=== PATIENT | female | born 1970 | race American Indian/Alaskan Native ===

== ENCOUNTER 2018-02-27 02:29 | Emergency (ER) | payer MEDICAID ==
[2018-02-27] MEDS ORDERED: DUONEB *Not for PRN Use IH ONE (02:32)
[2018-02-27] MEDS ORDERED: PROVENTIL IH ONE ×2 (02:33→03:23)
[2018-02-27] MEDS ORDERED: LASIX ONE ×2 (03:17)
[2018-02-27] MEDS ORDERED: DELTASONE PO ONE (03:22)
[2018-02-27] MEDS ORDERED: LASIX IV ONE ×2 (03:22→03:23)
--- NOTE | 2018-02-27 03:48 | XRay Report ---
FINAL REPORT EXAM: XR CHEST 1V AP HISTORY: chest pain COMPARISON: None available. FINDINGS: Frontal view(s) of the chest obtained. Heart borderline enlarged. Shallow inspiration with crowding of the bronchovascular markings. No large consolidation or effusion. No pneumothorax. Tiny calcified granuloma left midlung. IMPRESSION: Shallow inspiration with prominence of the pulmonary vasculature centrally. No overt edema. No focal consolidation or effusion.
[2018-02-27 04:38] LABS: BUN/Creatinine Ratio 13; Blood Urea Nitrogen 10 mg/dL (7-17); Calcium 8.8 mg/dL (8.4-10.2); Hemolysis Index 1
--- NOTE | 2018-02-27 06:10 | Emergency Department Report ---
ED Shortness of Breath HPI - General Chief Complaint: Adult Asthma Stated Complaint: SOB Time Seen by Provider: 02/27/18 03:21 Source: patient Mode of arrival: Ambulatory Limitations: Language Barrier - History of Present Illness Initial Comments: 24 hours of progressive onset shortness of breath and substernal chest pain. Patient says that feels like her COPD. It is exertional. Nonpositional. Feels like her legs are more swollen than usual. She gave herself 4 nebulizer treatments today with no improvement. She gave herself an extra dose of her Lasix, which did not help. Former smoker. Afebrile. No cough. She came to ER for evaluation. Patient has never been intubated before, but she has been admitted for her breathing. On 2L NC at baseline. - Related Data Previous Rx's Medication Instructions Recorded Last Taken Type Prednisone 50 mg PO DAILY #4 tablet 02/27/18 Unknown Rx Allergies Allergy/AdvReac Type Severity Reaction Status Date / Time promethazine [From Phenergan] Allergy Hives Verified 02/27/18 02:31 ED Review of Systems ROS: Stated complaint: SOB Other details as noted in HPI Comment: All other systems reviewed and negative Respiratory: shortness of breath Cardiovascular: chest pain ED Past Medical Hx - Past Medical History Previous Medical History?: Yes Hx Hypertension: Yes Hx Congestive Heart Failure: Yes Hx Asthma: Yes Additional medical history: hypothyroidism - Surgical History Past Surgical History?: No Additional Surgical History: umbilicus hernia - Social History Smoking Status: Unknown if ever smoked - Medications Home Medications: Home Medications Medication Instructions Recorded Confirmed Last Taken Type Prednisone 50 mg PO DAILY #4 tablet 02/27/18 Unknown Rx ED Physical Exam - General Limitations: Language Barrier General appearance: alert, in no apparent distress - Head Head exam: Present: atraumatic, normocephalic - Eye Eye exam: Present: normal appearance - ENT ENT exam: Present: mucous membranes moist - Neck Neck exam: Present: normal inspection - Respiratory Respiratory exam: Present: normal lung sounds bilaterally, wheezes. Absent: respiratory distress - Cardiovascular Cardiovascular Exam: Present: regular rate, normal rhythm. Absent: systolic murmur, diastolic murmur, rubs, gallop - GI/Abdominal GI/Abdominal exam: Present: soft, normal bowel sounds - Extremities Exam Extremities exam: Present: normal inspection, pedal edema (1+ bilateral. ) - Back Exam Back exam: Present: normal inspection - Neurological Exam Neurological exam: Present: alert, oriented X3 - Psychiatric Psychiatric exam: Present: normal affect, normal mood - Skin Skin exam: Present: warm, dry, intact, normal color. Absent: rash ED Course Vital Signs 02/27/18 02/27/18 02/27/18 02:35 03:00 03:16 Temperature 98.2 F Pulse Rate 82 79 Respiratory 22 22 Rate Blood Pressure 141/91 Blood Pressure 185/111 [Right] O2 Sat by Pulse 90 96 95 Oximetry 02/27/18 02/27/18 02/27/18 03:30 03:46 04:00 Temperature Pulse Rate 79 84 Respiratory 15 20 19 Rate Blood Pressure 141/91 120/69 121/71 Blood Pressure [Right] O2 Sat by Pulse 98 96 97 Oximetry 02/27/18 02/27/18 02/27/18 04:10 04:16 04:30 Temperature Pulse Rate 80 Respiratory 24 24 19 Rate Blood Pressure 121/71 122/77 Blood Pressure [Right] O2 Sat by Pulse 96 98 98 Oximetry 02/27/18 02/27/18 02/27/18 04:46 05:00 05:16 Temperature Pulse Rate Respiratory 17 14 22 Rate Blood Pressure 122/77 122/77 122/77 Blood Pressure [Right] O2 Sat by Pulse 98 100 92 Oximetry 02/27/18 02/27/18 02/27/18 05:30 05:45 06:01 Temperature Pulse Rate Respiratory 13 22 14 Rate Blood Pressure Blood Pressure [Right] O2 Sat by Pulse 93 95 93 Oximetry 02/27/18 06:15 Temperature Pulse Rate Respiratory 14 Rate Blood Pressure Blood Pressure [Right] O2 Sat by Pulse 97 Oximetry ED Medical Decision Making - Lab Data Result diagrams: 02/27/18 04:07 - EKG Data -: EKG Interpreted by Sc EKG shows normal: sinus rhythm, axis, intervals, QRS complexes, ST-T waves Rate: normal - Radiology Data Radiology results: report reviewed, image reviewed - Medical Decision Making 47-year-old female with past medical history of COPD on 2 L nasal cannula, CHF that presents to the ER with progressive onset shortness of breath. Vital signs are stable. Patient is well-appearing. She is talking on her phone when I walked in the room. Wheezing noted bilaterally. Patient does not have increased oxygen requirement. She clinically does not appear to be fluid overloaded. Patient was given breathing treatments and 40 mg IV Lasix. Patient thought that the breathing treatments helped best. Chest x-ray showed no focal process. EKG is nonischemic. Patient was given prednisone. After the patient admission, but she felt comfortable going home and following up with her ocean lifeguard later today. Given the well appearance of the patient and the fact that she has continued to talk on the phone while she's been in the ER this whole time, I felt that this was appropriate. Patient is cleared for discharge. - Differential Diagnosis ACS, pneumonia, pneumothorax, CHF versus COPD exacerbation Critical care attestation.: If time is entered above; I have spent that time in minutes in the direct care of this critically ill patient, excluding procedure time. ED Disposition Clinical Impression: COPD exacerbation Disposition: DC-01 TO HOME OR SELFCARE Is pt being admited?: No Does the pt Need Aspirin: No Condition: Stable Instructions: Chronic Obstructive Pulmonary Disease (ED) Additional Instructions: Start taking your prednisone on 02/28/18. Follow up with your ocean lifeguard about your breathing. Prescriptions: Prednisone 50 mg PO DAILY #4 tablet Referrals: PRIMARY CARE, [Primary Care Provider] - 3-5 Days
[2018-02-27 06:35] VITALS: BP 122/77
== END 2018-02-27 07:24 | disposition home or self-care (01) ==
LOC: ED 02:29
DX: J44.1 Chronic obstructive pulmonary disease with (acute) exacerbation (principal); I10 Essential (primary) hypertension; I50.9 Heart failure, unspecified
CPT/HCPCS: 36415; 71045; 80048; 83880; 84484; 93005; 93010; 94640; 96374; 99284; J1940; J7512; J2930